=== PATIENT | male | born 1995 | race Asian ===

== ENCOUNTER 2025-07-12 20:12 | Emergency (ER) | payer OTHER ==
[2025-07-12] MEDS ORDERED: Acetaminophen 500 MG TAB ONE (20:53)
[2025-07-12] MEDS ORDERED: Dexamethasone 10 MG/ML VIAL ONE (20:53)
[2025-07-12] MEDS ORDERED: cefTRIAXone (ROCEPHIN) 1 GM VIAL ONE (20:54)
[2025-07-12] MEDS ORDERED: Ketorolac Tromethamine 30 MG (1 mL) VIAL ONE (20:54)
== END 2025-07-12 21:50 | disposition home or self-care (01) ==
LOC: ERS 20:12
DX: J02.0 Streptococcal pharyngitis (principal)
CPT/HCPCS: 96365; 96375; J0696; J1100; J1885